=== PATIENT | male | born 1965 | race Hispanic/Latino ===

== ENCOUNTER 2021-03-17 19:36 | Emergency (ER) | payer SELFPAY ==
[2021-03-17] MEDS ORDERED: ACETAMINOPHEN-CODEINE 300/30MG TAB ONE (19:56)
[2021-03-17] MEDS ORDERED: DiphenhydrAMINE HCL 50 MG/ML VIAL ONE (19:56)
[2021-03-17] MEDS ORDERED: METHYLPREDNISOLONE SOD SUCC 125MG/2ML VIAL ONE (19:56)
[2021-03-17] MEDS ORDERED: FAMOTIDINE/PF 20 MG/2 ML VIAL IV ONE (19:57)
[2021-03-17] MEDS ORDERED: KETOROLAC TROMETHAMINE 30MG/ML ONE (20:43)
== END 2021-03-17 20:55 | disposition home or self-care (01) ==
LOC: EDH 19:36
DX: T63.441A Toxic effect of venom of bees, accidental (unintentional), initial encounter (principal); T78.3XXA Angioneurotic edema, initial encounter; Y92.89 Other specified places as the place of occurrence of the external cause
CPT/HCPCS: 96374; 96375; 99284; J1200; J1885; J2930; J3490